=== PATIENT | male | born 1970 | race Caucasian/White ===

== ENCOUNTER 2017-08-10 15:30 | Emergency (ER) | payer OTHER ==
--- NOTE | 2017-08-10 16:15 | EDPHY ---
H & P Smoking Status: Never smoked Time Seen by Provider: 08/10/17 16:06 HPI/ROS: CHIEF COMPLAINT: Left elbow laceration HISTORY OF PRESENT ILLNESS: 46-year-old male with up-to-date tetanus arrives via private vehicle complaining of acute left dorsal elbow laceration after he slipped off of a ladder impacting this area on piece of metal. He has no pain to the elbow, full pain-free range of motion of left elbow. No paresthesia. PRIMARY CARE PROVIDER: REVIEW OF SYSTEMS: A ten point review of systems was performed and is negative with the exception of the items mentioned in the HPI PHYSICAL EXAM (Prior to examination, patient consented to physical exam, hands were washed and my usual and customary physical exam procedures followed) 1) GENERAL: Well-developed, well-nourished, alert and oriented. Appears to be in no acute distress. 2) HEAD: Normocephalic 3) HEENT: sclera anicteric 4) LUNGS: Breathing comfortably. 5) SKIN: Dorsal left elbow 1.5 cm well-demarcated laceration. 6) MUSCULOSKELETAL: No radial head pain. Full flexion and extension , supination pronation which does not elicit pain. Proximally distally nontender. 7) NEUROLOGIC: Full sensation distally (Katharine,D Ashley) Constitutional: Initial Vital Signs Temperature (C) 36.7 C 08/10/17 15:34 Heart Rate 64 08/10/17 15:34 Respiratory Rate 16 08/10/17 15:34 Blood Pressure 123/81 H 08/10/17 15:34 O2 Sat (%) 94 08/10/17 15:34 O2 Delivery Mode Room Air Allergies/Adverse Reactions: No Known Allergies Allergy (Unverified 08/10/17 15:34) Home Medications: Medication Instructions Recorded Cephalexin [Keflex] 500 mg PO TID 5 Days cap 08/10/17 MDM/Departure - MDM Procedures: Procedure: Laceration repair. I explained the indications, risks and benefits for both laceration repair and anesthetic administration. Verbal consent was obtained from the patient. The laceration on the left elbow dorsal aspect was anesthetized using 0.5% bupivicaine with epinephrine. After anesthetic administered the patient was observed for a period of time and had no apparent adverse effects. The wound was cleaned, prepped, draped in normal sterile fashion and explored to its base. No foreign body seen, no foreign bodies palpated. There were no deep structures involved. Doubt traumatic arthrotomy of the left elbow. The wound was repaired with 2 simple interrupted 4 0 Prolene sutures. The wound repair was simple. The procedure was performed by myself. Patient has been informed that scarring will occur, although efforts have been made to minimize this. ( Bernice Alcantar) ED Course/Re-evaluation: I did not see this patient while he was in the emergency department. However his care was discussed with the PA while the patient was in the department. I agree with treatment plan and management (Kishor Christensen) - Depart Disposition: Home, Routine, Self-Care Clinical Impression: Laceration of left elbow Qualifiers: Encounter type: initial encounter Qualified Code(s): S51.012A - Laceration without foreign body of left elbow, initial encounter Condition: Good Instructions: Care For Your Stitches (ED), Laceration (ED) Additional Instructions: Return to the ER if you develop redness, swelling, discharge, warmth to the wound, red streaks going up your arm, or any other symptoms that concern you. Prescriptions: Cephalexin [Keflex] 500 mg PO TID 5 Days cap Referrals: Return, to the ER in 10 days for suture removal [Other] - 08/20/17
[2017-08-10 17:00] VITALS: BP 124/86
== END 2017-08-10 17:00 | disposition home or self-care (01) ==
PROC: 0HQEXZZ Repair Left Lower Arm Skin, External Approach (ICD-10-PCS; principal; 2017-08-10)
DX: S51.012A Laceration without foreign body of left elbow, initial encounter (principal); W18.40XA Slipping, tripping and stumbling without falling, unspecified, initial encounter